=== PATIENT | female | born 1990 | race Two or more races ===

== ENCOUNTER → 2019-09-19 | Outpatient (CLI) | payer OTHER | END | disposition home or self-care (01) | LOC: PRENATAL 08:30 | DX: O35.3XX1 Maternal care for (suspected) damage to fetus from viral disease in mother, fetus 1 (principal); O36.80X1 Pregnancy with inconclusive fetal viability, fetus 1; Z34.01 Encounter for supervision of normal first pregnancy, first trimester ==

== ENCOUNTER → 2019-11-07 | Outpatient (CLI) | payer OTHER | END | disposition home or self-care (01) | LOC: PRENATAL 09:00 | PROVIDERS: ATTEND Obstetrics & Gynecology | DX: O26.843 Uterine size-date discrepancy, third trimester (principal); O28.1 Abnormal biochemical finding on antenatal screening of mother; O34.211 Maternal care for low transverse scar from previous cesarean delivery; O09.523 Supervision of elderly multigravida, third trimester; O24.410 Gestational diabetes mellitus in pregnancy, diet controlled ==

== ENCOUNTER 2020-03-12 12:00 | Inpatient (IN) | payer OTHER ==
[~2020-03-12] VITALS: Ht 157.5 cm; Wt 2.7 kg
[2020-03-29] MEDS ORDERED: CEFUROXIME500 MG PO (07:23)
[2020-03-29] MEDS ORDERED: ADULT LOW DOSE81 M1 PO (07:24)
[2020-03-29] MEDS ORDERED: PRENATAL TABLE1 EAC1 PO (07:24)
[2020-03-29] MEDS ORDERED: BUFFERIN 325 M325 MG PO (07:25)
== END 2020-03-31 13:21 | DRG 807 ==
LOC: SURG-SUITE 03-29 06:39 → LDR 03-29 06:39 → SURG-SUITE 03-29 15:06 → LDR 04-02 12:00
PROVIDERS: ADMIT Obstetrics & Gynecology; ATTEND Obstetrics & Gynecology
PROC: 10E0XZZ Delivery of Products of Conception, External Approach (ICD-10-PCS; principal; 2020-03-29)
PROC: 0KQM0ZZ Repair Perineum Muscle, Open Approach (ICD-10-PCS; 2020-03-29)
PROC: 4A1HXCZ Monitoring of Products of Conception, Cardiac Rate, External Approach (ICD-10-PCS; 2020-03-29)
DX: O70.1 Second degree perineal laceration during delivery (principal); Z37.0 Single live birth; Z3A.39 39 weeks gestation of pregnancy; Z20.828 Contact with and (suspected) exposure to other viral communicable diseases